=== PATIENT | female | born 2000 | race Caucasian/White ===

== ENCOUNTER 2018-09-19 12:33 | Emergency (ER) | payer OTHER ==
--- NOTE | 2018-09-19 13:51 | UC ---
General HPI - HPI Summary HPI Summary: sick since last week with episodic headaches, sore throat and mildly raspy voice plus sinus congestion. headache constant for past 2 days, achy across the front into temples. not an abrupt or worst headache. no nausea or noise sensitivity. is a little light sensitive. no hx injury, visual loss, numb/weak extremities. no hx migraines. seen at [facility] and [facility] with no relief. - History of Current Complaint Stated Complaint: MENA,SINUS COMPLAINT Time Seen by Provider: 09/19/18 13:44 Hx Obtained From: Patient, Family/Program Coordinator [employer] Hx Last Menstrual Period: MID DECEMBER Onset/Duration: Gradual Onset Timing: Constant Associated Signs & Symptoms: Positive: Headache - Allergy/Home Medications Allergies/Adverse Reactions: Allergies Allergy/AdvReac Type Severity Reaction Status Date / Time No Known Allergies Allergy Verified 09/19/18 13:56 Home Medications: Home Medications Bcp 1 tab BEDTIME 09/19/18 [History Confirmed 09/19/18] PMH/Surg Hx/FS Hx/Imm Hx - Additional Past Medical History Additional PMH: ADD - Surgical History Surgical History: Yes Surgery Procedure, Year, and Place: TUBES EARS INFANT - Family History Known Family History: Positive: None - Social History Occupation: Student Lives: Dormitory/Roommates Alcohol Use: None Substance Use Type: None Smoking Status (MU): Never Smoked Tobacco - Immunization History Vaccination Up to Date: Yes Review of Systems All Other Systems Reviewed And Are Negative: Yes Constitutional: Positive: Negative Skin: Positive: Negative Eyes: Positive: Negative ENT: Positive: Sore Throat, Sinus Congestion Respiratory: Positive: Negative Cardiovascular: Positive: Negative Gastrointestinal: Positive: Negative Genitourinary: Positive: Negative Motor: Positive: Negative Neurovascular: Positive: Negative Musculoskeletal: Positive: Negative Neurological: Positive: Headache Psychological: Positive: Negative Is Patient Immunocompromised?: No Physical Exam Triage Information Reviewed: Yes Appearance: Well-Appearing Vital Signs Reviewed: Yes Eyes: Positive: Conjunctiva Clear, Other: - PERRL, EOMI. ENT: Positive: Pharyngeal erythema, Nasal congestion, TMs normal, Tonsillar swelling - mild, Hoarse voice - mild. Negative: Nasal drainage, Trismus, Muffled voice, Sinus tenderness Neck: Positive: Supple, Nontender, Enlarged Nodes @ - peritonsilar. Negative: Nuchal Rigidity Respiratory: Positive: Lungs clear, Normal breath sounds Cardiovascular: Positive: RRR, No Murmur, Pulses Normal Abdomen Description: Positive: Nontender, No Organomegaly, Soft. Negative: Distended, Guarding Bowel Sounds: Positive: Present Musculoskeletal: Positive: ROM Intact, No Edema Neurological: Positive: Other: - A&Ox3. CN 2-12 grossly intact. 5/5 strength, 2 + reflexes and sensation intact x4. Normal steady gait to room. performs rapid alternation moves with ease. Psychological: Positive: Age Appropriate Behavior Skin Exam: Normal Diagnostics - Laboratory Diagnostic Studies Completed/Ordered: FS BS=95 - EKG Cardiac Rate: NL Cardiac Rhythm: Sinus: Normal Ectopy: None ST Segment: Normal Re-Evaluation - Re-Evaluation First Eval Re-Evaluation Time: 15:06 Change: Improved - pt headache has resolved. she still has a sore throat but overall describes herself as feeling "much better". able to sit up then stand and ambulate without recurrent near syncope or syncope. Course/Dx - Course Course Of Treatment: While assessing for sinus tendernss, pt abruptly c/o being dizzy, turned pale and assumed a supine postion. She admits to feeling very light headed. no LOC. BP during event was 77/46. pt recovered rapidly. she has only consumed a small orange and drank water today. pt had a second episode, the same as above a few minutes later as well. her hx and pe was d/w Dr Munroe. will tx with hydration plus tx for the headache to see if symptoms resolve. fs bs=95(wnl). mena resolved with po/iv fluids and crackers. no concern for intracranial pathology. rapid strep=neg. ekg=unremarkable. will check for mono given duration of illness. no indication for antibiotics. - Differential Dx - Multi-Symptom Provider Diagnoses: headache, pharyngitis, near syncope Discharge - Sign-Out/Discharge Documenting (check all that apply): Patient Departure All imaging exams completed and their final reports reviewed: No Studies - Discharge Plan Condition: Stable Disposition: HOME Patient Education Materials: General Headache (ED), Pharyngitis (ED), Near Syncope (ED) Referrals: Zoila Williamson DO [Primary Care Provider] - 3 Days - Billing Disposition and Condition Condition: STABLE Disposition: Home
[2018-09-19] MEDS ORDERED: Ibuprofen ADULT LIQ* 600 MG/30 ML UDC PO ONE (13:56)
[2018-09-19] MEDS ORDERED: Ondansetron ODT TAB* 4 MG PO ONE (13:57)
[2018-09-19] MEDS ORDERED: NS 0.9% 1000 ML* 1,000 ML IV ONE (14:05)
[2018-09-19 15:10] VITALS: BP 117/68
[2018-09-19 18:10] LABS: ABS Basophils 0.1 10^3/ul (0-0.2); ABS Eosinophils 0.3 10^3/ul (0-0.6); ABS Lymphocytes 2.6 10^3/ul (1.0-4.8); ABS Neutrophils 11.3 10^3/ul (1.5-7.7); ABS Nucleated RBC 0 10^3/ul; Hematocrit 38 % (35-47); Hemoglobin 12.4 g/dl (12.0-16.0); Mean Corpuscular HGB Conc 33 g/dl (31-36); Mean Corpuscular Hemoglobin 28 pg (27-31); Mean Corpuscular Volume 85 fL (80-97); Mean Platelet Volume 7.6 fL (7.4-10.4); Nucleated Red Blood Cells % 0.1; Platelet Count 406 10^3/ul (150-450); Red Blood Count 4.48 10^6/ul (4.00-5.40); Red Cell Distribution Width 15 % (10.5-15); White Blood Count 15.3 10^3/ul (3.5-10.8)
--- NOTE | 2018-09-20 10:06 | UC ---
- Progress Note Progress Note: Elevated WBCs at 15. reviewed note from yesterday. + pre-syncope with low BP. Note reports that she is possibly on abx from [email or web address] [facility]. please clarify if on an antibiotic. I would possibly consider antibiotic if not already on one, especially if there has been no improvement or progression. If lightheaded or dizzy, she should be seen in the ER. Re-Evaluation - Re-Evaluation First Eval Re-Evaluation Time: 15:06 Change: Improved - pt headache has resolved. she still has a sore throat but overall describes herself as feeling "much better". able to sit up then stand and ambulate without recurrent near syncope or syncope. Discharge - Sign-Out/Discharge Documenting (check all that apply): Post-Discharge Follow Up All imaging exams completed and their final reports reviewed: No Studies - Discharge Plan Condition: Stable Disposition: HOME Patient Education Materials: Pharyngitis (ED), Near Syncope (ED), General Headache (ED) Referrals: Zoila Williamson DO [Primary Care Provider] - 3 Days - Billing Disposition and Condition Condition: STABLE Disposition: Home
--- NOTE | 2018-09-23 07:31 | UC ---
- Progress Note Progress Note: Reviewed EBV + EgG neg IgM. C/w past hx of mononucleosis. Encourage f/u with pcp for further review / discussion. Reviewed notes from 09/19/18(Tonya Moran). Also reviewed inc WBC (see follow up progress notes, reviewed by Dr. Argueta). RN to call pt - it is imperative that Nanda seek immediate follow up. Mio in the setting of low bp, and elev wbc Please confirm if f/u. If not recommend go to ED. Re-Evaluation - Re-Evaluation First Eval Re-Evaluation Time: 15:06 Change: Improved - pt headache has resolved. she still has a sore throat but overall describes herself as feeling "much better". able to sit up then stand and ambulate without recurrent near syncope or syncope. Course/Dx - Diagnoses Provider Diagnoses: General ill feeling Is Visit Related: No - no test avalable Discharge - Sign-Out/Discharge Documenting (check all that apply): Post-Discharge Follow Up All imaging exams completed and their final reports reviewed: No Studies - Discharge Plan Condition: Stable Disposition: HOME Patient Education Materials: Pharyngitis (ED), Near Syncope (ED), General Headache (ED) Referrals: Zoila Williamson DO [Primary Care Provider] - 3 Days - Billing Disposition and Condition Condition: STABLE Disposition: Home
== END 2018-09-19 15:23 | disposition home or self-care (01) ==
LOC: UCCORT 12:33
DX: J02.9 Acute pharyngitis, unspecified (principal); R51 Headache; R55 Syncope and collapse; J34.89 Other specified disorders of nose and nasal sinuses; R03.1 Nonspecific low blood-pressure reading; D72.829 Elevated white blood cell count, unspecified
CPT/HCPCS: 36415; 85025; 86308; 86664; 86665; 87651; 93005; 96360; 99212; A9270-GY; G0463